=== PATIENT | male | born 1980 | race Caucasian/White ===

== ENCOUNTER 2018-03-17 11:27 | Emergency (ER) | payer OTHER ==
[~2018-03-17 11:27] MED LIST changes: -ONDA4TAB PO; -TRAM-420 PO
[2018-03-17] MEDS ORDERED: fentaNYL CITR 100 MCG/2 ML AMP IVP ONE (11:30)
[2018-03-17] MEDS ORDERED: METOCLOPRAMIDE 10 MG/2 ML SDV IVP ONE (11:30)
[2018-03-17] MEDS ORDERED: NS(*) 0.9% 1000 ML BAG 1,000 ML IV ONE (11:30)
[2018-03-17] MEDS ORDERED: IOPAMIDOL 76% 75 ML INFUS BTL 75 ML ONE (12:23)
--- NOTE | 2018-03-17 13:14 | RADIOLOGY IMAGING REPORT ---
[place] [facility] [place] NAME: Hoang Altamirano : 1980 MR: [id number] V: [id number] EXAM DATE: ORDERING PHYSICIAN: ALEJANDRO STOKES TECHNOLOGIST: Location: [facility] Patient: Hoang Altamirano : 1980 Visit/Account:[id number] Date of Sevice: 03/17/2018 CT abdomen and pelvis with IV contrast Indication: Abdominal pain Comparison: None available. . Technique: Helical CT images were obtained through the abdomen and pelvis during injection of nonio leo iodinated intravenous contrast. Reformatted coronal and sagittal images were also obtained. Contrast: 75 ml of Isovue-370 IV contrast. One of the following dose optimization techniques was u tilized in the performance of this exam: Automated exposure control; adjustment of the mA and/or kV a ccording to the patient's size; or use of an iterative reconstruction technique. Specific details c an be referenced in the facility's radiology CT exam operational policy. Findings: Lower lung post: Noted is a 4 mm pulmonary nodule within the right lower lobe. Additionally, a pote ntial 3 mm pulmonary nodules noted within the right middle lobe. There is mild bibasilar atelectasis. Liver: Probable focal fatty infiltration is noted near the gallbladder fossa. Biliary: Gallbladder appears unremarkable as well as the intra and extra hepatic biliary system. Pancreas: Normal appearance. Spleen: Normal appearance. Adrenal glands: Unremarkable. Kidneys / retroperitoneum: Incidental note is made of a simple appearing cyst within the superior kyung e of the left kidney. No evidence of nephrolithiasis or hydronephrosis. 2 mm radiodensity is noted ne ar the left ureterovesicular junction; however, this is felt to represent a venous calcification rath er than distal ureteral calculus. Bowel / peritoneum / mesenteries: The visualized small and large bowel appear unremarkable. The appen chucky is normal. Lymph node assessment: No pathologic adenopathy identified. Pelvic structures: No free fluid Vessels: Normal. Musculoskeletal / Body wall: No acute or aggressive osseous abnormality. IMPRESSION: 1. No acute intra-abdominal process. 2. 4 mm right lower lobe pulmonary nodule as well as potential 3 mm right middle lobe pulmonary nodul e. Please see recommendations below. [employer] FOLLOW-UP GUIDELINES FOR NEWLY DETECTED INCIDENTAL NODULES IN PERSONS 35 YEARS OF AGE OR OLDER. *THESE RECOMMENDATIONS DO NOT APPLY TO LUNG CANCER SCREENING, PATIENTS WITH IMMUNOSUPPRESSION , OR PA TIENTS WITH KNOWN PRIMARY MALIGNANCY. SOLITARY SOLID NODULES If nodule size is less than 6 mm: Low risk patient - no follow up needed High risk patient - Optional CT at 12 months. If nodule size is 6-8 mm: Low risk patient - follow up CT at 6-12 months, then consider CT at 18-24 months if no change. High risk patient - follow up CT at 6-12 months, then CT at 18-24 months if no change. If nodule size is greater than 8 mm: Low risk patient - Consider CT at 3, 9 months, and 24 months; or PET/CT, or tissue sampling, or a com bination thereof. High risk patient - Consider CT at 3, 9 months, and 24 months; or PET/CT, or tissue sampling, or a co mbination thereof. LOW RISK PATIENT: Minimal or absent history of tobacco use and of other known risk factors. HIGH RISK PATIENT: Tobacco use, family history of lung cancer, upper pulmonary lobe location of nodul e, presence of emphysema, pulmonary fibrosis, older age. Mady H, Otto DP, Anne Marie JM, et al. Guidelines for Management of Incidental Pulmonary Nodules Dete cted on CT Images: From the [employer] 2017. Radiology. Report Dictated By: Jori Salmon DO at 03/17/2018 12:55 PM Report E-Signed By: Jori Salmon DO at 03/17/2018 1:10 PM WSN:[id number]
[2018-03-17 13:25] VITALS: BP 110/62
[2018-03-17] MEDS ORDERED: ONDA4TAB PO (13:26)
[2018-03-17] MEDS ORDERED: TRAM-420 PO (13:26)
--- NOTE | 2018-03-17 13:26 | ER Report ---
History and Physical Time Seen By MD: 11:30 Hx. of Stated Complaint: PATIENT REPORTS LOWER ABDOMINAL PAIN SINCE THIS MORNING. SENT BY URGENT CARE HPI/ROS CHIEF COMPLAINT: Lower abdominal pain HISTORY OF PRESENT ILLNESS: Patient is a 37-year-old male here with complaints of lower abdominal pain which started overnight at approximately 2:00 this morning. Patient was evaluated at an urgent care at which time he was noted to have leukocytosis. Patient was sent to the emergency department for further evaluation and care. Patient was hemodynamically stable at time of evaluation, afebrile. He did have significant amount of pain in the lower abdomen. REVIEW OF SYSTEMS: Constitutional: No fever, no chills. Eyes: No discharge. ENT: No sore throat. Cardiovascular: No chest pain, no palpitations. Respiratory: No cough, no shortness of breath. Gastrointestinal: + lower abdominal pain, + nausea with vomiting. Genitourinary: No hematuria. Musculoskeletal: No back pain. Skin: No rashes. Neurological: No headache. Allergies: Coded Allergies: cat dander (Verified Allergy, Unknown, 09/02/15) Home Meds Active Scripts Tramadol Hcl (TRAMADOL HCL) 50 Mg Tablet, 50 MG PO Q6H PRN for PAIN, #12 TAB 0 Refills Prov:ALEJANDRO STOKES DO 03/17/18 Ondansetron (ZOFRAN ODT) 4 Mg Tab.rapdis, 4 MG PO Q6H PRN for NAUSEA/VOMITING, #20 TAB.JG 0 Refills Prov:ALEJANDRO STOKES DO 03/17/18 Fluticasone Propionate (FLOVENT HFA) 220 Mcg Inha, 2 SPRAYS PO BID, #2 INHALER 3 Refills Prov:JEANNE LOJA MD 11/01/15 Pantoprazole Sodium (PANTOPRAZOLE SODIUM) 40 Mg Tablet.dr, 1 TAB PO BIDAC, #60 TAB 3 Refills Take 1 tablet 1/2 hour before breakfast and 1 tablet 1/2 hour before supper Prov:JEANNE LOAJ MD 11/01/15 Hx Smoking: Yes (1/2ppd x15 yrs) Smoking Status: Current: Every Day Smoker Hx Substance Use Disorder: No Hx Alcohol Use: No Constitutional Vital Sign - Last 24 Hours 11/4/18 11/4/18 11/4/18 11/4/18 11:29 11:35 11:57 12:00 Temp 98.2 Pulse 78 49 Resp 20 B/P (MAP) 107/62 107/62 (77) 103/57 (72) Pulse Ox 94 92 O2 Delivery Room Air 03/17/18 03/17/18 03/17/18 03/17/18 12:30 12:57 13:00 13:05 Pulse 53 54 B/P (MAP) 107/63 (78) 104/54 (71) Pulse Ox 93 93 03/17/18 13:25 B/P (MAP) 110/62 (78) Physical Exam General Appearance: The patient is alert, has no immediate need for airway protection and no signs of toxicity. Mild distress secondary to pain Eyes: Pupils equal and round no pallor or injection. ENT, Mouth: Mucous membranes are moist. Respiratory: There are no retractions, lungs are clear to auscultation. Cardiovascular: Regular rate and rhythm. Gastrointestinal: Abdomen is soft and + tender in the lower abdomen, no masses, bowel sounds normal. Neurological: No focal deficits Skin: Warm and dry, no rashes. Musculoskeletal: Neck is supple non tender. Extremities are nontender, nonswollen and have full range of motion. DIFFERENTIAL DIAGNOSIS: After history and physical exam differential diagnosis was considered for abdominal pain including but not limited to appendicitis, cholecystitis, gastritis and urinary tract infection. Medical Decision Making Data Points Laboratory Hematology Test 03/17/18 00:00 03/17/18 11:29 Lactate 2.0 mmol/L (0.7-2.1) Lipase 85 U/L (23-300) Urine Color Yellow Urine Clarity Clear Urine pH 7.0 pH (4.8-9.5) Urine Specific [place] 1.025 Urine Protein 30 mg/dL (NEGATIVE) Urine Glucose (UA) Negative mg/dL (NEGATIVE) Urine Ketones Trace mg/dL (NEGATIVE) Urine Blood Negative (NEGATIVE) Urine Nitrite Negative (NEGATIVE) Urine Bilirubin Negative (NEGATIVE) Urine Urobilinogen 2.0 mg/dL (0.2-1.9) Urine Leukocyte Esterase Negative (NEGATIVE) Urine RBC 3 /HPF (0-2/HPF) Urine WBC 1 /HPF (0-5/HPF) Urine Squamous Epithelial Cells None /LPF (</=FEW) Urine Bacteria Negative /HPF (NONE-FEW) Urine Mucus Few /HPF (NONE-FEW) Chemistry Test 03/17/18 00:00 03/17/18 11:29 Lactate 2.0 mmol/L (0.7-2.1) Lipase 85 U/L (23-300) Urine Color Yellow Urine Clarity Clear Urine pH 7.0 pH (4.8-9.5) Urine Specific [place] 1.025 Urine Protein 30 mg/dL (NEGATIVE) Urine Glucose (UA) Negative mg/dL (NEGATIVE) Urine Ketones Trace mg/dL (NEGATIVE) Urine Blood Negative (NEGATIVE) Urine Nitrite Negative (NEGATIVE) Urine Bilirubin Negative (NEGATIVE) Urine Urobilinogen 2.0 mg/dL (0.2-1.9) Urine Leukocyte Esterase Negative (NEGATIVE) Urine RBC 3 /HPF (0-2/HPF) Urine WBC 1 /HPF (0-5/HPF) Urine Squamous Epithelial Cells None /LPF (</=FEW) Urine Bacteria Negative /HPF (NONE-FEW) Urine Mucus Few /HPF (NONE-FEW) Urinalysis Test 03/17/18 11:29 Urine Color Yellow Urine Clarity Clear Urine pH 7.0 pH (4.8-9.5) Urine Specific [place] 1.025 Urine Protein 30 mg/dL (NEGATIVE) Urine Glucose (UA) Negative mg/dL (NEGATIVE) Urine Ketones Trace mg/dL (NEGATIVE) Urine Blood Negative (NEGATIVE) Urine Nitrite Negative (NEGATIVE) Urine Bilirubin Negative (NEGATIVE) Urine Urobilinogen 2.0 mg/dL (0.2-1.9) Urine Leukocyte Esterase Negative (NEGATIVE) Urine RBC 3 /HPF (0-2/HPF) Urine WBC 1 /HPF (0-5/HPF) Urine Squamous Epithelial Cells None /LPF (</=FEW) Urine Bacteria Negative /HPF (NONE-FEW) Urine Mucus Few /HPF (NONE-FEW) EKG/Imaging Imaging CT abdomen and pelvis with IV contrast Indication: Abdominal pain Comparison: None available. . Technique: Helical CT images were obtained through the abdomen and pelvis during injection of nonionic iodinated intravenous contrast. Reformatted coronal and sagittal images were also obtained. Contrast: 75 ml of Isovue-370 IV contrast. One of the following dose optimi zation techniques was utilized in the performance of this exam: Automated exposure control; adjustment of the mA and/or kV according to the patient's size; or use of an iterative reconstruction technique. Specific details can be referenced in the facility's radiology CT exam operational policy. Findings: Lower lung post: Noted is a 4 mm pulmonary nodule within the right lower lobe. Additionally, a potential 3 mm pulmonary nodules noted within the right middle lobe. There is mild bibasilar atelectasis. Liver: Probable focal fatty infiltration is noted near the gallbladder fossa. Biliary: Gallbladder appears unremarkable as well as the intra and extra hepatic biliary system. Pancreas: Normal appearance. Spleen: Normal appearance. Adrenal glands: Unremarkable. Kidneys / retroperitoneum: Incidental note is made of a simple appearing cyst within the superior pole of the left kidney. No evidence of nephrolithiasis or hydronephrosis. 2 mm radiodensity is noted near the left ureterovesicular junction; however, this is felt to represent a venous calcification rather than distal ureteral calculus. Bowel / peritoneum / mesenteries: The visualized small and large bowel appear unremarkable. The appendix is normal. Lymph node assessment: No pathologic adenopathy identified. Pelvic structures: No free fluid Vessels: Normal. Musculoskeletal / Body wall: No acute or aggressive osseous abnormality. IMPRESSION: 1. No acute intra-abdominal process. 2. 4 mm right lower lobe pulmonary nodule as well as potential 3 mm right middle lobe pulmonary nodule. Please see recommendations below. ED Course/Re-evaluation ED Course Patient is a 37-year-old male here with complaints of abdominal pain which started overnight. Patient was sent over from urgent care for further evaluation. CT imaging showed no acute intra-abdominal infection. Labs were remarkable for a leukocytosis of 15 however lactate was unremarkable, labs showed no other acute findings. Patient was given IV fluids, antiemetics, analgesics with significant relief of symptoms. Patient was given prescription for tramadol and Zofran for outpatient treatment and was stable at time of discharge. Patient agreed to follow up with PCP in the next 2 days. Decision to Disposition Date: Mar 17, 2018 Decision to Disposition Time: 13:30 Depart Departure Latest Vital Signs Vital Signs Date Time Temp Pulse Resp B/P (MAP) Pulse Ox O2 Delivery O2 Flow Rate FiO2 03/17/18 13:25 110/62 (78) 03/17/18 13:05 54 93 03/17/18 11:29 98.2 20 Room Air Impression: Primary Impression: Abdominal pain Additional Impression: Nausea Condition: Improved Disposition: HOME OR SELF-CARE New Scripts Tramadol Hcl (TRAMADOL HCL) 50 Mg Tablet 50 MG PO Q6H PRN for PAIN, #12 TAB 0 Refills Prov: ALEJANDRO STOKES DO 03/17/18 Ondansetron (ZOFRAN ODT) 4 Mg Tab.rapdis 4 MG PO Q6H PRN for NAUSEA/VOMITING, #20 TAB.JG 0 Refills Prov: ALEJANDRO STOKES DO 03/17/18 Patient Instructions: Acute Nausea and Vomiting (ED) Additional Instructions: Please drink plenty water. You may take 1 tablet of Zofran every 4-6 hours as ne eded for nausea and vomiting. You may take 1 tramadol every 6-8 hours as needed for pain control. Please return if you cannot tolerate oral intake, you develop fevers, worsening abdominal pain, blood in the stools or urine. Problem Qualifiers ALEJANDRO STOKES DO Mar 17, 2018 13:26
== END 2018-03-17 13:37 | disposition home or self-care (01) ==
LOC: ER 11:43
DX: R10.30 Lower abdominal pain, unspecified (principal); R11.0 Nausea
CPT/HCPCS: 74177; 81001; 83605; 83690; 96361; 96374; 96375; 99284; J2765; J3010; J7030; Q9967

== ENCOUNTER → 2018-03-17 | Outpatient (REF) | payer OTHER ==
[~2018-03-17] MED LIST: FLU220R PO; METO-734 PO; ONDA4TAB PO; PANT40TA65 PO; TRAM-420 PO
[2018-03-17 10:51] LABS: PLATELET COUNT, AUTOMATED 353 K/uL (150-450)
== END ==
PROVIDERS: ATTEND Family Medicine
DX: R10.9 Unspecified abdominal pain (principal); R11.10 Vomiting, unspecified
CPT/HCPCS: 82040; 82247; 82310; 82374; 82435; 82565; 82947; 84075; 84132; 84155; 84295; 84450; 84460; 84520; 85025; 86140

== ENCOUNTER 2018-10-02 13:04 | Emergency (ER) | payer OTHER ==
[~2018-10-02 13:04] MED LIST changes: +ONDA4TAB PO; +TRAM-420 PO
--- NOTE | 2018-10-02 13:16 | ER Report ---
History and Physical Time Seen By MD: 13:16 Hx. of Stated Complaint: patient having really bad abdominal cramping, nausea, vomiting and diarrhea since this morning around 0530. HPI/ROS CHIEF COMPLAINT: Abdominal pain, nausea, vomiting HISTORY OF PRESENT ILLNESS: 37-year-old male patient presents to emergency room with complaint of abdominal pain, nausea or vomiting. Patient states that this been going on. 5:30 this morning. States that he was woken up out of sleep and felt like he had to vomit. He did vomit 1 and then had significant pain started in the lower abdomen. Patient states that he did vomit 2 since then. He states he did take some Zofran has not vomited since. Patient states the pain has been constant and significant. He rates his pain a 9-10 out of 10. He states he is not taking any medication for the pain. He denies any fevers, however he states he's had chills. He states that he has had significant cramping of the abdomen. REVIEW OF SYSTEMS: Respiratory: No cough, no dyspnea. Cardiovascular: No chest pain, no palpitations. Gastrointestinal: As noted above Musculoskeletal: No back pain. Allergies: Coded Allergies: cat dander (Verified Allergy, Unknown, 09/02/15) Home Meds Active Scripts Ondansetron 4 Mg Odt (ONDANSETRON 4 MG ODT) 4 Mg Tab.rapdis, 4 MG PO Q6H PRN for NAUSEA/VOMITING, #20 TAB Prov:ABIMBOLA LIM [facility] 10/02/18 Tramadol Hcl (TRAMADOL HCL) 50 Mg Tablet, 50 MG PO Q4-6H PRN for PAIN, #10 TAB Prov:ABIMBOLA LIM [facility] 10/02/18 Discontinued Scripts Tramadol Hcl (TRAMADOL HCL) 50 Mg Tablet, 50 MG PO Q6H PRN for PAIN, #12 TAB 0 Refills Prov:STOKESALEJANDRO GUY S DO 03/17/18 Ondansetron (ZOFRAN ODT) 4 Mg Tab.rapdis, 4 MG PO Q6H PRN for NAUSEA/VOMITING, #20 TAB.JG 0 Refills Prov:ALEJANDRO STOKES S DO 03/17/18 Fluticasone Propionate (FLOVENT HFA) 220 Mcg Inha, 2 SPRAYS PO BID, #2 INHALER 3 Refills Prov:JEANNE LOJA MD 11/01/15 Pantoprazole Sodium (PANTOPRAZOLE SODIUM) 40 Mg Tablet.dr, 1 TAB PO BIDAC, #60 TAB 3 Refills Take 1 tablet 1/2 hour before breakfast and 1 tablet 1/2 hour before supper Prov:JEANNE LOJA MD 11/01/15 Past Medical/Surgical History Patient has a past medical history of asthma, reflux, right arm fracture, anxiety. Patient has surgical history of molar removed. Reviewed Nurses Notes: Yes Hx Smoking: Yes (1/2ppd x15 yrs) Smoking Status: Current: Every Day Smoker Hx Substance Use Disorder: No Hx Alcohol Use: No Constitutional Vital Sign - Last 24 Hours 10/02/18 10/02/18 10/02/18 10/02/18 13:12 13:19 13:30 13:34 Temp 98.1 Pulse 94 65 75 Resp 28 B/P (MAP) 141/112 144/116 (125) Pulse Ox 95 77 95 O2 Delivery Room Air 10/02/18 10/02/18 10/02/18 10/02/18 13:49 14:00 14:20 14:30 Pulse 80 77 B/P (MAP) 109/63 (78) 102/55 (71) Pulse Ox 93 88 10/02/18 10/02/18 14:35 14:40 Pulse 71 60 Pulse Ox 86 90 Physical Exam General Appearance: The patient is alert, has no immediate need for airway protection and no current signs of toxicity. Respiratory: Chest is non tender, lungs are clear to auscultation. Cardiac: regular rate and rhythm Gastrointestinal: Abdomen is soft and tender in bilateral lower quadrants, no masses, bowel sounds normal. Musculoskeletal: Neck: Neck is supple and non tender. Extremities have full range of motion and are non tender. Skin: No rashes or lesions. DIFFERENTIAL DIAGNOSIS: After history and physical exam differential diagnosis was considered for abdominal pain including but not limited to appendicitis, cholecystitis, gastritis and urinary tract infection. Medical Decision Making Data Points Result Diagram: 10/02/18 1329 10/02/18 1329 Laboratory Hematology Test 10/02/18 13:29 Red Blood Count 5.30 M/uL (4.00-5.60) Mean Corpuscular Volume 92.3 fL (80.0-96.0) Mean Corpuscular Hemoglobin 30.9 pg (26.0-33.0) Mean Corpuscular Hemoglobin Concent 33.4 g/dL (32.0-36.0) Red Cell Distribution Width 14.0 % (11.5-14.5) Mean Platelet Volume 8.1 fL (7.2-11.1) Neutrophils (%) (Auto) 82.5 % (39.4-72.5) Lymphocytes (%) (Auto) 10.8 % (17.6-49.6) Monocytes (%) (Auto) 6.1 % (4.1-12.4) Eosinophils (%) (Auto) 0.1 % (0.4-6.7) Basophils (%) (Auto) 0.5 % (0.3-1.4) Nucleated RBC Relative Count (auto) 0.0 /100WBC Neutrophils # (Auto) 16.4 K/uL (2.0-7.4) Lymphocytes # (Auto) 2.1 K/uL (1.3-3.6) Monocytes # (Auto) 1.2 K/uL (0.3-1.0) Eosinophils # (Auto) 0.0 K/uL (0.0-0.5) Basophils # (Auto) 0.1 K/uL (0.0-0.1) Nucleated RBC Absolute Count (auto) 0.00 K/uL Erythrocyte Sedimentation Rate 4 mm/HOUR (0-15) Sodium Level 144 mmol/L (137-145) Potassium Level 4.2 mmol/L (3.5-5.0) Chloride Level 109 mmol/L (98-107) Carbon Dioxide Level 20 mmol/L (22-30) Blood Urea Nitrogen 9 mg/dl (9-21) Creatinine 0.90 mg/dl (0.66-1.25) Glomerular Filtration Rate Calc > 60.0 Random Glucose 128 mg/dl (75-110) Calcium Level 10.1 mg/dl (8.4-10.2) Total Bilirubin 0.5 mg/dl (0.2-1.3) Aspartate Amino Transf (AST/SGOT) 42 U/L (0-35) Alanine Aminotransferase (ALT/SGPT) 26 U/L (0-56) Alkaline Phosphatase 85 U/L (0-126) C-Reactive Protein < 0.5 mg/dl (<1.0) Total Protein 7.5 g/dl (6.3-8.2) Albumin 4.7 g/dl (3.5-5.0) Amylase Level 66 U/L (0-110) Lipase 66 U/L (23-300) Chemistry Test 10/02/18 13:29 White Blood Count 19.9 k/uL (4.5-11.0) Red Blood Count 5.30 M/uL (4.00-5.60) Hemoglobin 16.4 g/dL (14.0-18.0) Hematocrit 49.0 % (42.0-52.0) Mean Corpuscular Volume 92.3 fL (80.0-96.0) Mean Corpuscular Hemoglobin 30.9 pg (26.0-33.0) Mean Corpuscular Hemoglobin Concent 33.4 g/dL (32.0-36.0) Red Cell Distribution Width 14.0 % (11.5-14.5) Platelet Count 348 K/uL (150-450) Mean Platelet Volume 8.1 fL (7.2-11.1) Neutrophils (%) (Auto) 82.5 % (39.4-72.5) Lymphocytes (%) (Auto) 10.8 % (17.6-49.6) Monocytes (%) (Auto) 6.1 % (4.1-12.4) Eosinophils (%) (Auto) 0.1 % (0.4-6.7) Basophils (%) (Auto) 0.5 % (0.3-1.4) Nucleated RBC Relative Count (auto) 0.0 /100WBC Neutrophils # (Auto) 16.4 K/uL (2.0-7.4) Lymphocytes # (Auto) 2.1 K/uL (1.3-3.6) Monocytes # (Auto) 1.2 K/uL (0.3-1.0) Eosinophils # (Auto) 0.0 K/uL (0.0-0.5) Basophils # (Auto) 0.1 K/uL (0.0-0.1) Nucleated RBC Absolute Count (auto) 0.00 K/uL Erythrocyte Sedimentation Rate 4 mm/HOUR (0-15) Glomerular Filtration Rate Calc > 60.0 Calcium Level 10.1 mg/dl (8.4-10.2) Total Bilirubin 0.5 mg/dl (0.2-1.3) Aspartate Amino Transf (AST/SGOT) 42 U/L (0-35) Alanine Aminotransferase (ALT/SGPT) 26 U/L (0-56) Alkaline Phosphatase 85 U/L (0-126) C-Reactive Protein < 0.5 mg/dl (<1.0) Total Protein 7.5 g/dl (6.3-8.2) Albumin 4.7 g/dl (3.5-5.0) Amylase Level 66 U/L (0-110) Lipase 66 U/L (23-300) EKG/Imaging Imaging CT ABDOMEN PELVIS W/ CON HISTORY: Abdomen pain TECHNIQUE: Following administration of IV contrast contiguous axial images acquired through the abdomen/pelvis. Coronal and sagittal reformatting also performed.Dose Lowering Technique One of the following dose optimization techniques was utilized in the per formance of this exam: Automated exposure control; adjustment of the mA and/or kV according to the patient's size; or use of an iterative reconstruction technique. Specific details can be referenced in the facility's radiology CT exam operational policy. CONTRAST: 75 mL Isovue-370 COMPARISON: March 17, 2018 FINDINGS: Visualized lung bases: 4 mm noncalcified nodule lateral aspect right lower lobe appears unchanged and is best seen on image 20 of series 3 Hepatobiliary: Mild hyperdensity layering within the dependent portion the gallbladder may represent stones or sludge. No evidence of biliary ductal dilatation Spleen: Negative. Adrenals: Negative. Pancreas: Negative. Kidneys ureters or bladder: Upper pole left renal cyst appears unchanged. No evidence of hydronephrosis or hydroureter Genitalia: Negative. GI: The appendix is visualized and does not appear inflamed. There is no evidence of bowel obstruction or bowel wall thickening. The stomach is m oderately distended with fluid Vessels/spaces/nodes: Negative. Bones/soft tissues: Negative. Additional findings: None pertinent. IMPRESSION: 4 mm noncalcified nodule lateral aspect of the right lower lobe has remained stable Mild hyperdensity layering within the dependent portion the gallbladder may represent stones or sludge The stomach is moderately distended with fluid. Correlation with meal history needed Report Dictated By: Sanjuanita Knox MD at 10/02/2018 2:27 PM Report E-Signed By: Sanjuanita Knox MD at 10/02/2018 2:39 PM ED Course/Re-evaluation ED Course Patient was admitted exam room, history and physical were obtained. Differential diagnoses were considered. On examination lungs are clear, heart is regular, abdomen is soft and tender in the bilateral lower quadrants. An IV was started, a CBC, CMP, urinalysis, ESR, CRP were obtained. Lab work was unremarkable except patient did have an elevated white count of 19,000. I believe is likely secondary to de-margination caused by vomiting. ESR and CRP were unremarkable. CT scan of the abdomen and pelvis was done which showed no acute findings. There was some concern about possible sludge in the gallbladder. I discussed this with the patient. With patient not having any pain in the upper abdomen I do not feel that is related to what is going on. Patient had no changes in his liver enzymes or his pancreatic enzymes think there could be a gallbladder issue. I discusses the patient who verbalized understanding and agreement. We will go ahead and discharge him home with home supply of pain medication and Zofran. Decision to Disposition Date: October 02, 2018 Decision to Disposition Time: 14:51 Depart Departure Latest Vital Signs Vital Signs Date Time Temp Pulse Resp B/P (MAP) Pulse Ox O2 Delivery O2 Flow Rate FiO2 10/02/18 14:40 60 90 10/02/18 14:30 102/55 (71) 10/02/18 13:12 98.1 28 Room Air Impression: Primary Impression: Gastroenteritis Additional Impression: Abdominal pain Condition: Improved Disposition: HOME OR SELF-CARE New Scripts Ondansetron 4 Mg Odt (ONDANSETRON 4 MG ODT) 4 Mg Tab.rapdis 4 MG PO Q6H PRN for NAUSEA/VOMITING, #20 TAB Prov: ABIMBOLA LIM 10/02/18 Tramadol Hcl (TRAMADOL HCL) 50 Mg Tablet 50 MG PO Q4-6H PRN for PAIN, #10 TAB Prov: ABIMBOLA LIM 10/02/18 Patient Instructions: Gastroenteritis (ED) Additional Instructions: Increase fluid intake. Clear liquid diet for the next 24-48 hours. After that you may advance diet as tolerated starting with complex carbohydrates; rice, bread or pasta. Follow up with your primary care provider in the next week. Return to the ER if condition worsens. I am not sure of the underlying cause of your abdominal pain. I believe that it is related to a viral infection of the digestive tract which is causing some spasms. If pain persists follow up with Dr. Loja or Dr. Torres. You may need further evaluation and possible colonoscopy. Problem Qualifiers Additional Impression: Abdominal pain Abdominal location: lower abdomen, unspecified Qualified Codes: R10.30 - Lower abdominal pain, unspecified ABIMBOLA LIM October 02, 2018 13:16
[2018-10-02] MEDS ORDERED: NS(*) 0.9% 1000 ML BAG 1,000 ML IV ONE (13:23)
[2018-10-02] MEDS ORDERED: MORPHINE 2 MG/ML SYR IVP ONE (13:25)
[2018-10-02] MEDS ORDERED: ONDANSETRON 4 MG/2 ML VIAL IVP ONE (13:25)
[2018-10-02] MEDS ORDERED: IOPAMIDOL 76% 100 ML INFUS BTL 100 ML ONE (13:38)
[2018-10-02 13:47] LABS: PLATELET COUNT, AUTOMATED 348 K/uL (150-450)
[2018-10-02 14:30] VITALS: BP 102/55
--- NOTE | 2018-10-02 14:44 | RADIOLOGY IMAGING REPORT ---
FACILITY: [facility] PATIENT NAME: Hoang Altamirano : 1980 MR: [id number] V: [id number] EXAM DATE: ORDERING PHYSICIAN: ABIMBOLA LIM TECHNOLOGIST: Location: [facility] [place] Patient: Hoang Altamirano : 1980 Visit/Account:[id number] Date of Sevice: 10/02/2018 CT ABDOMEN PELVIS W/ CON HISTORY: Abdomen pain TECHNIQUE: Following administration of IV contrast contiguous axial images acquired through the abdom en/pelvis. Coronal and sagittal reformatting also performed.Dose Lowering Technique One of the following dose optimization techniques was utilized in the performance of this exam: Autom ated exposure control; adjustment of the mA and/or kV according to the patient's size; or use of an i terative reconstruction technique. Specific details can be referenced in the facility's radiology C T exam operational policy. CONTRAST: 75 mL Isovue-370 COMPARISON: March 17, 2018 FINDINGS: Visualized lung bases: 4 mm noncalcified nodule lateral aspect right lower lobe appears unchanged an d is best seen on image 20 of series 3 Hepatobiliary: Mild hyperdensity layering within the dependent portion the gallbladder may represent stones or sludge. No evidence of biliary ductal dilatation Spleen: Negative. Adrenals: Negative. Pancreas: Negative. Kidneys ureters or bladder: Upper pole left renal cyst appears unchanged. No evidence of hydronephro sis or hydroureter Genitalia: Negative. GI: The appendix is visualized and does not appear inflamed. There is no evidence of bowel obstruct ion or bowel wall thickening. The stomach is moderately distended with fluid Vessels/spaces/nodes: Negative. Bones/soft tissues: Negative. Additional findings: None pertinent. IMPRESSION: 4 mm noncalcified nodule lateral aspect of the right lower lobe has remained stable Mild hyperdensity layering within the dependent portion the gallbladder may represent stones or sludg e The stomach is moderately distended with fluid. Correlation with meal history needed Report Dictated By: Sanjuanita Knox MD at 10/02/2018 2:27 PM Report E-Signed By: Sanjuanita Knox MD at 10/02/2018 2:39 PM WSN:[email or web address]
[2018-10-02] MEDS ORDERED: TRAM-420 PO (14:49)
[2018-10-02] MEDS ORDERED: ONDA4TAB9 PO (14:49)
== END 2018-10-02 15:05 | disposition home or self-care (01) ==
LOC: ER 13:24
DX: K52.9 Noninfective gastroenteritis and colitis, unspecified (principal); R10.30 Lower abdominal pain, unspecified
CPT/HCPCS: 74177; 82150; 83690; 85025; 85651; 86140; 96374; 96375; 99284; J2270; J2405; J7030; Q9967; 82040; 82247; 82310; 82374; 82435; 82565; 82947; 84075; 84132; 84155; 84295; 84450; 84460; 84520